=== PATIENT | female | born 1995 | race Caucasian/White ===

== ENCOUNTER 2017-11-19 02:26 | Inpatient (IN) | payer OTHER, BC ==
[~2017-11-19 02:26] MED LIST: NORCO 5-325 TA1 EACH PO
--- NOTE | 2017-11-20 08:30 | PR ---
[facility] [address] [facility] [place], [place] [address] Signed PP Progress Notes Datetime Report Generated by SHONA: 11/20/2017 08:30 SUBJECTIVE: [id number] Pain: Within normal limits Pain Comments: slept well Vital Signs: [id number] Vital Signs: Reviewed; Within Normal Limits EXAM: [id number] Cardiovascular: Not Done Respiratory: Not Done Abdomen/Uterus: Abnormal Lochia: Normal Vulva/Perineum: Not Done Breasts: Not Done CVA Tenderness: Not Done Extremities: Normal Incision: Not Applicable Progress: Normal Exam Comments: Fundus firm, NT @ U-1 H/H 10.4/30.8, WBC 13.6, plat 133k IMPRESSION/PLAN/PROCEDURES: [id number] Impression: Normal progression Plan: Discharge Procedures: None Progress Notes: Doing well. She desires D/C home later today. Signing Physician: Darrius Yan MD CC: *Electronically Signed* 11/20/17829 DARRIUS YAN MD PATIENT NAME: ARMANDO MENDOZA ALFONSO PROGRESS NOTE DATE OF : [birth year] PHYSICIAN: DARRIUS YAN MD RPT #: [id number] REPORT IS CONFIDENTIAL AND NOT TO BE RELEASED WITHOUT AUTHORIZATION
== END 2017-11-20 16:52 | disposition home or self-care (01) | DRG 775 ==
LOC: FBCO 02:26 → FBC 03:15
PROVIDERS: ADMIT General Practice
PROC: 10E0XZZ Delivery of Products of Conception, External Approach (ICD-10-PCS; principal; 2017-11-19)
PROC: 0UQMXZZ Repair Vulva, External Approach (ICD-10-PCS; 2017-11-19)
PROC: 00HU33Z Insertion of Infusion Device into Spinal Canal, Percutaneous Approach (ICD-10-PCS; 2017-11-19)
PROC: 3E0R3BZ Introduction of Anesthetic Agent into Spinal Canal, Percutaneous Approach (ICD-10-PCS; 2017-11-19)
DX: O42.92 Full-term premature rupture of membranes, unspecified as to length of time between rupture and onset of labor (principal); Z37.0 Single live birth; O70.0 First degree perineal laceration during delivery; Z3A.38 38 weeks gestation of pregnancy
CPT/HCPCS: 01960; 36415; 59025; 85027; 99212; J2590; J3010